=== PATIENT | female | born 1950 | race Caucasian/White ===

== ENCOUNTER 2017-02-06 09:36 | Inpatient (IN) | payer OTHER, MEDICAID ==
[~2017-02-06] VITALS: Ht 157.5 cm; Wt 83.2 kg
[2017-02-06] MEDS ORDERED: LORazepam 2MG/ML-1ML VIAL IV ONE (10:30)
[2017-02-06 10:46] LABS: Basophils # (auto) 0 uL; Basophils % (auto) 0.1 % (0.0-2.0); CONDITION Y; Eosinophils # (auto) 0.1 uL; Eosinophils % (auto) 0.7 % (0.0-7.0); Hematocrit 40.5 % (36.0-46.0); Hemoglobin 13.5 g/dL (12.2-16.2); Lymphocytes # (auto) 0.7 uL; Lymphocytes % (auto) 6.4 % (10.0-50.0); Mean Corpuscular Hemoglobin 31.6 pg (28.0-32.0); Mean Corpuscular Hgb Conc. 33.4 g/dL (32.0-36.0); Mean Corpuscular Volume 94.7 fL (80.0-100.0); Mean Platelet Volume 7.3 fL (7.4-10.4); Monocytes # (auto) 0.6 uL; Monocytes % (auto) 5.7 % (0.0-12.0); Neutrophils # (auto) 9.6 uL; Neutrophils % (auto) 87.1 % (37.0-80.0); Platelet Count (auto) 232 10^3/uL (140-450); Red Cell Distribution Width 14.7 % (11.6-16.0)
[2017-02-06 11:39] LABS: Albumin 4.1 g/dL (3.4-5.0); Alkaline Phosphatase 83 U/L (45-117); Anion Gap 10 (5-15); Aspartate Aminotransferase 18 U/L (15-37); BUN/Creatinine Ratio 16.9; Bilirubin, Total 0.6 mg/dL (0.2-1.0); Blood Urea Nitrogen 25 mg/dL (7-18); Calcium 9.9 mg/dL (8.5-10.1); Carbon Dioxide 19 mmol/L (21-32); Chloride 114 mmol/L (98-107); GFR African American 46 mL/min; GFR Non-African American 38 mL/min; Glucose 109 mg/dL (74-106); Potassium 4.1 mmol/L (3.5-5.1); Sodium 143 mmol/L (136-145); Total Protein 6.9 g/dL (6.4-8.2)
[2017-02-06] MEDS ORDERED: MORPHINE SULF INJ 2 MG/ML SYRINGE 1ML IV PRN (12:00)
[2017-02-06] MEDS ORDERED: ACETAMINOPHEN 500 MG TAB PO PRN (12:00)
[2017-02-06] MEDS ORDERED: LACTULOSE 20Gm/30ML SOLN PO PRN (12:00)
[2017-02-06] MEDS ORDERED: ENOXAPARIN SOD 40 MG/0.4 ML SYRINGE SC ONE (12:00)
[2017-02-06] MEDS ORDERED: NITROGLYCERIN 0.4 MG SL TAB SL PRN (12:00)
[2017-02-06] MEDS ORDERED: TEMAZEPAM 15 MG CAP PO PRN (12:00)
[2017-02-06] MEDS ORDERED: PROMETHAZINE HCL 25 MG/ML 1ML IV PRN (12:00)
[2017-02-06 12:20] LABS: INR 0.96 (0.9-1.15); Partial Thromboplastin Time 23.6 sec (22.64-33.71); Prothrombin Time 10.5 sec (9.37-12.3)
[2017-02-06 12:50] LABS: Temperature: 23.3 C (20.0-25.0)
[2017-02-06] MEDS: SODIUM CHLORIDE 0.9% 1,000 ML IV SCH ×2 (12:56→20:23)
[2017-02-06 14:04] LABS: Urine Bilirubin Negative (Negative); Urine Blood Negative /uL (Negative); Urine Color Yellow (Yellow); Urine Glucose Normal (Normal); Urine Ketone Negative (Negative); Urine Nitrite POSITIVE (Negative); Urine RBC 3 /hpf (0 - 4); Urine Squamous Epithelial Cell FEW /hpf (<5); Urine Urobilinogen Normal (Negative); Urine pH 6.5 (5.0-8.0)
[2017-02-06] MEDS ORDERED: cefTRIAXone 1GM/50ML D5W 50 ML IV ONE (14:30)
[2017-02-06 19:14] VITALS: BP 156/60
[2017-02-06] MEDS: MORPHINE SULFATE 4 MG/ML SYRG IV PRN (20:23)
[2017-02-06 21:31] VITALS: BP 161/76
[2017-02-06] MEDS: HYDROcodone-ACET 5/325MG TAB PO PRN (23:30)
[2017-02-07] MEDS: SODIUM CHLORIDE 0.9% 1,000 ML IV SCH ×3 (01:48→20:59)
[2017-02-07] MEDS: LORazepam 0.5 MG TAB PO PRN ×3 (01:51→20:58)
[2017-02-07] MEDS ORDERED: OMEP20CA74 PO (02:52)
[2017-02-07] MEDS ORDERED: TEMA30CA PO (02:52)
[2017-02-07] MEDS ORDERED: DIPH25CA6 PO (02:52)
[2017-02-07] MEDS ORDERED: ATEN50TA PO (02:52)
[2017-02-07] MEDS ORDERED: ALLO100T PO (02:52)
[2017-02-07] MEDS ORDERED: DOXE25CA2 PO (02:52)
[2017-02-07] MEDS ORDERED: HYDR-2651 PO (02:52)
[2017-02-07] MEDS ORDERED: DICL1GEL26 TOP (02:52)
[2017-02-07] MEDS ORDERED: ACET650T11 PO (02:52)
[2017-02-07] MEDS ORDERED: POTA8TAB2 PO (02:52)
[2017-02-07] MEDS ORDERED: LOPE2CAP PO (02:52)
[2017-02-07] MEDS ORDERED: PERCOT PO (02:52)
[2017-02-07] MEDS ORDERED: LOSA50TA6 PO (02:52)
[2017-02-07] MEDS ORDERED: FURO40TA4 PO (02:52)
[2017-02-07] MEDS ORDERED: DIPH2.5T16 PO (02:52)
[2017-02-07] MEDS ORDERED: PRAV20TA3 PO (02:52)
[2017-02-07] MEDS ORDERED: BACL10TA PO (02:52)
[2017-02-07 05:03] VITALS: BP 139/60
[2017-02-07 05:41] LABS: Basophils # (auto) 0 uL; Basophils % (auto) 0.4 % (0.0-2.0); CONDITION Y; Eosinophils # (auto) 0.2 uL; Hematocrit 35.1 % (36.0-46.0); Hemoglobin 11.6 g/dL (12.2-16.2); Lymphocytes # (auto) 2.2 uL; Lymphocytes % (auto) 28.1 % (10.0-50.0); Mean Corpuscular Hemoglobin 31.6 pg (28.0-32.0); Mean Corpuscular Hgb Conc. 32.9 g/dL (32.0-36.0); Mean Corpuscular Volume 96.1 fL (80.0-100.0); Mean Platelet Volume 7.4 fL (7.4-10.4); Monocytes # (auto) 0.8 uL; Monocytes % (auto) 9.9 % (0.0-12.0); Neutrophils # (auto) 4.7 uL; Neutrophils % (auto) 59.6 % (37.0-80.0); Platelet Count (auto) 174 10^3/uL (140-450); Red Cell Distribution Width 14.2 % (11.6-16.0); White Blood Cell 7.8 10^3/uL (4.4-10.8)
[2017-02-07 06:06] LABS: Albumin 3.2 g/dL (3.4-5.0); Bilirubin, Total 0.4 mg/dL (0.2-1.0); Calcium 9.4 mg/dL (8.5-10.1); Total Protein 6.1 g/dL (6.4-8.2)
[2017-02-07 08:00] VITALS: BP 158/85
[2017-02-07 09:00] VITALS: BP_SYST 111; BP_SYST 158; BP_DIAS 77; BP_DIAS 85
[2017-02-07] MEDS: cefTRIAXone 1GM/50ML D5W 50 ML IV SCH (10:44)
[2017-02-07] MEDS: ENOXAPARIN SOD 40 MG/0.4 ML SYRINGE SC SCH (10:44)
[2017-02-07 13:00] VITALS: BP_SYST 110; BP_SYST 159; BP_DIAS 100; BP_DIAS 72
[2017-02-07] MEDS ORDERED: hydrALAZINE HCL 20 MG/ML VL IV PRN (16:15)
[2017-02-07 17:00] VITALS: BP 151/83
[2017-02-07] MEDS: ATENOLOL 50 MG TAB PO SCH (20:58)
[2017-02-07] MEDS: hydrALAZINE HCL 25 MG TAB PO SCH (20:58)
[2017-02-07 21:42] VITALS: BP 157/89
[2017-02-08] MEDS: MORPHINE SULFATE 4 MG/ML SYRG IV PRN ×2 (00:23→11:55)
[2017-02-08] MEDS: SODIUM CHLORIDE 0.9% 1,000 ML IV SCH ×2 (00:23→14:53)
[2017-02-08] MEDS: HYDROcodone-ACET 5/325MG TAB PO PRN ×2 (02:33→16:06)
[2017-02-08 04:39] VITALS: BP 142/68
[2017-02-08 08:00] VITALS: BP 144/88
[2017-02-08] MEDS: cefTRIAXone 1GM/50ML D5W 50 ML IV SCH (08:22)
[2017-02-08] MEDS: LORazepam 0.5 MG TAB PO PRN (08:32)
[2017-02-08 09:00] VITALS: BP 144/88
[2017-02-08] MEDS ORDERED: LOSARTAN POTASSIUM 50 MG TAB PO SCH (10:00)
[2017-02-08] MEDS: ENOXAPARIN SOD 40 MG/0.4 ML SYRINGE SC SCH (10:40)
[2017-02-08] MEDS: ATENOLOL 50 MG TAB PO SCH (10:41)
[2017-02-08] MEDS: hydrALAZINE HCL 25 MG TAB PO SCH (10:41)
[2017-02-08 13:00] VITALS: BP 148/84
[2017-02-08] MEDS ORDERED: CIPROFLOXACIN HCL 500 MG TAB PO ONE (15:15)
[2017-02-08 16:28] VITALS: BP 144/88
== END 2017-02-08 17:05 | disposition home or self-care (01) | DRG 917 ==
LOC: ER 09:36 → TELE 09:37 → TELE-CENTR 18:17
PROVIDERS: ADMIT Internal Medicine; ATTEND Internal Medicine
DX: T40.601A Poisoning by unspecified narcotics, accidental (unintentional), initial encounter (principal); G92 Toxic encephalopathy; G93.41 Metabolic encephalopathy; N17.9 Acute kidney failure, unspecified; N39.0 Urinary tract infection, site not specified; I10 Essential (primary) hypertension; E78.5 Hyperlipidemia, unspecified; F17.200 Nicotine dependence, unspecified, uncomplicated; K21.9 Gastro-esophageal reflux disease without esophagitis; M10.9 Gout, unspecified; Z90.49 Acquired absence of other specified parts of digestive tract; Z85.528 Personal history of other malignant neoplasm of kidney; Z90.710 Acquired absence of both cervix and uterus; Z90.5 Acquired absence of kidney
CPT/HCPCS: 36415; 70450; 71010; 80053; 80061; 80307; 80320; 81001; 82550; 82607; 82746; 83735; 84443; 84484; 85025; 85610; 85652; 85730; 87086; 87088; 87186; 93005; 93306; 93886; 94761; 95819; 96365; 96372; 96375; J0696

== ENCOUNTER 2017-02-13 11:06 | Emergency (ER) | payer OTHER, MEDICAID ==
[~2017-02-13] VITALS: Ht 165.1 cm; Wt 72.6 kg
[~2017-02-13 11:06] MED LIST: ACET650T11 PO; ALLO100T PO; ATEN50TA PO; BACL10TA PO; DIPH2.5T16 PO; DOXE25CA2 PO; FURO40TA4 PO; HYDR-2651 PO; LOSA50TA6 PO; OMEP20CA74 PO; PERCOT PO; POTA8TAB2 PO; PRAV20TA3 PO; TEMA30CA PO
[2017-02-13] MEDS ORDERED: ACETAMINOPHEN 325 MG TAB PO ONE (13:45)
[2017-02-13] MEDS ORDERED: SODIUM CHLORIDE 0.9% 1,000 ML IV ONE ×2 (13:45→16:30)
[2017-02-13 14:25] LABS: Basophils # (auto) 0 uL; Basophils % (auto) 0.1 % (0.0-2.0); CONDITION Y; Eosinophils # (auto) 0.2 uL; Eosinophils % (auto) 1.9 % (0.0-7.0); Hematocrit 35.6 % (36.0-46.0); Hemoglobin 11.9 g/dL (12.2-16.2); Lymphocytes # (auto) 1.5 uL; Lymphocytes % (auto) 15.6 % (10.0-50.0); Mean Corpuscular Hemoglobin 31.8 pg (28.0-32.0); Mean Corpuscular Hgb Conc. 33.4 g/dL (32.0-36.0); Mean Corpuscular Volume 95.2 fL (80.0-100.0); Mean Platelet Volume 7.6 fL (7.4-10.4); Monocytes # (auto) 0.6 uL; Monocytes % (auto) 6.4 % (0.0-12.0); Neutrophils # (auto) 7.2 uL; Platelet Count (auto) 193 10^3/uL (140-450); Red Cell Distribution Width 13.9 % (11.6-16.0); White Blood Cell 9.5 10^3/uL (4.4-10.8)
[2017-02-13 14:44] LABS: Urine RBC None Seen /hpf (0 - 4)
[2017-02-13 14:48] LABS: Urine Bilirubin Negative (Negative); Urine Blood Negative /uL (Negative); Urine Color Yellow (Yellow); Urine Glucose Normal (Normal); Urine Ketone Negative (Negative); Urine Nitrite Negative (Negative); Urine Urobilinogen Normal (Negative)
[2017-02-13 14:53] LABS: Albumin 3.3 g/dL (3.4-5.0); Alkaline Phosphatase 63 U/L (45-117); Anion Gap 8 (5-15); Aspartate Aminotransferase 20 U/L (15-37); BUN/Creatinine Ratio 12.1; Bilirubin, Total 0.4 mg/dL (0.2-1.0); Blood Urea Nitrogen 13 mg/dL (7-18); Calcium 8.8 mg/dL (8.5-10.1); Carbon Dioxide 23 mmol/L (21-32); Chloride 107 mmol/L (98-107); GFR African American 66 mL/min; GFR Non-African American 55 mL/min; Glucose 96 mg/dL (74-106); Potassium 3.5 mmol/L (3.5-5.1); Sodium 138 mmol/L (136-145); Total Protein 6.1 g/dL (6.4-8.2)
[2017-02-13 17:49] VITALS: BP 153/77
== END 2017-02-13 19:01 | disposition home or self-care (01) ==
LOC: EDBD 11:06 → ER 11:06
DX: R41.82 Altered mental status, unspecified (principal); F11.10 Opioid abuse, uncomplicated; K21.9 Gastro-esophageal reflux disease without esophagitis; E78.5 Hyperlipidemia, unspecified; I10 Essential (primary) hypertension; Z88.6 Allergy status to analgesic agent
CPT/HCPCS: 36415; 51702; 71010; 80053; 80307; 80320; 81001; 82962; 84484; 85025; 93005; 96360; 96361; 99285; J7030

== ENCOUNTER 2019-12-13 06:04 | Day surgery (SDC) | payer OTHER, MEDICAID ==
[~2019-12-13 06:04] MED LIST changes: -ACET650T11 PO; -BACL10TA PO; +DICL1GEL26 TOP; -DIPH2.5T16 PO; +DOCU1CAP46 PO; -HYDR-2651 PO; +LOSA-69 PO; -LOSA50TA6 PO; -POTA8TAB2 PO; -TEMA30CA PO
[2019-12-13] MEDS ORDERED: LIDOCAINE 2%HCL (LOCAL ANESTH.) INJ 20ML MDV ONE (07:23)
[2019-12-13] MEDS ORDERED: IOHEXOL 350 MG/ML 100ML IJ ONE (07:25)
[2019-12-13] MEDS ORDERED: ANGIOMAX 250 MG VIAL IV ONE (08:02)
[2019-12-13] MEDS ORDERED: fentaNYL CITRATE 100 MCG/2 ML VL ONE (08:02)
[2019-12-13] MEDS ORDERED: HEPARIN SODIUM (PORCINE) 5000 UNITS/ML 1ML VIAL ONE (08:02)
[2019-12-13] MEDS ORDERED: VERAPAMIL 2.5MG/ML INJ 2ML VIAL IV ONE (08:02)
[2019-12-13] MEDS ORDERED: IODIXANOL 320MG/ML 100ML BTL IV ONE (08:03)
[2019-12-13] MEDS ORDERED: SODIUM CHL 0.9% 0 ML ONE (08:03)
[2019-12-13] MEDS ORDERED: MIDAZOLAM HCL 1MG/1ML-2 ML VIAL ONE (08:03)
[2019-12-13] MEDS ORDERED: ACETAMINOPHEN 500 MG TAB PO PRN (10:30)
[2019-12-13] MEDS ORDERED: HYDROcodone-ACET 5/325MG TAB PO PRN (10:30)
[2019-12-13] MEDS ORDERED: ONDANSETRON HCL 4 MG/2 ML VIAL IV PRN (10:30)
== END 2019-12-13 11:38 | disposition home or self-care (01) ==
LOC: CATH 06:04
PROVIDERS: ATTEND Specialist
DX: R94.39 Abnormal result of other cardiovascular function study (principal); I25.10 Atherosclerotic heart disease of native coronary artery without angina pectoris; I10 Essential (primary) hypertension; E78.5 Hyperlipidemia, unspecified; Z88.6 Allergy status to analgesic agent; Z88.5 Allergy status to narcotic agent; Z98.890 Other specified postprocedural states; Z79.899 Other long term (current) drug therapy; Z87.891 Personal history of nicotine dependence; Z11.59 Encounter for screening for other viral diseases
CPT/HCPCS: 93458; C1769; C1887; C1894; J1644; J2250; J3010; J7030; Q9967; U0003; 99152; 99153